=== PATIENT | female | born 2000 ===

== ENCOUNTER 2022-03-07 18:20 | Emergency (ER) | payer SELFPAY ==
[~2022-03-07] VITALS: Ht 162.6 cm; Wt 68.2 kg
[2022-03-07 18:21] VITALS: BP 129/85
== END 2022-03-07 18:34 | disposition left against medical advice (07) ==
LOC: M ED 18:20
DX: Z53.21 Procedure and treatment not carried out due to patient leaving prior to being seen by health care provider (principal)